=== PATIENT | female | born 1940 | race Caucasian/White ===

== ENCOUNTER → 2020-02-05 09:23 | Outpatient (CLI) | payer MEDICARE, OTHER, SELFPAY ==
[2020-02-06 12:02] LABS: COVID19 Sendout Not Detected (Not Detected)
== END ==
PROVIDERS: Visit Provider Physician Assistant
DX: Z11.59 Encounter for screening for other viral diseases (principal)
CPT/HCPCS: 87635

== ENCOUNTER → 2020-08-12 07:33 | Outpatient (CLI) | payer MEDICARE, OTHER, SELFPAY ==
--- NOTE | 2020-08-12 07:36 | DI.US.S_ITS ---
PROCEDURE: US ABDOMEN COMPLETE INDICATIONS: EPIGASTRIC PAIN, NAUSEA TECHNIQUE: Real-time scanning was performed of the abdominal and retroperitoneal organs, with image documentation. COMPARISON: None. FINDINGS: Liver: Liver is normal in size and homogeneous in echotexture. Small hepatic cysts x3 identified. 1 cyst measuring 1.9 cm has a thin septation without blood flow. Gallbladder: Nondilated. No stones or sludge. Small gallbladder polyps x2 measuring 0.3 cm. Normal gallbladder wall thickness. No pericholecystic fluid. Negative sonographic Corrigan's sign. Biliary ducts: Intrahepatic bile ducts are non-dilated. Extrahepatic bile duct caliber measures 5 mm. Normal is 6-7 mm or less in diameter, or 10 mm or less post-cholecystectomy. Pancreas: Visualized portions of the pancreas are sonographically normal. Spleen: Spleen is normal in size and homogeneous in echotexture. Kidneys: Kidneys are normal in size and echotexture. Right kidney measures 11.9 cm long; left kidney measures 11.0 cm long. No hydronephrosis or nephrolithiasis. No solid masses. Aorta: Visualized aorta is normal in caliber at less than 3 cm. Iliacs: Proximal common iliac arteries are normal in caliber at less than 2.5 cm. IVC: Intrahepatic inferior vena cava is patent. Miscellaneous: No free abdominal fluid. IMPRESSION: 1. No acute cholecystitis. No gallstones seen. Small gallbladder polyps not requiring further imaging surveillance. 2. Small hepatic cysts. 1 of the cysts has a thin septation and is minimally complex. 3. No hydronephrosis. Dictated by: Justin Suarez M.D. on 08/12/2020 at 10:12 Approved by: Justin Suarez M.D. on 08/12/2020 at 10:19
[2020-08-12 08:01] LABS: Add Manual Diff / Slide Review NO; Basophils Absolute Auto 100 /uL (0-100); Basophils Percent Auto 1.1 % (0-2); Eosinophils Absolute Auto 200 /uL (0-450); Eosinophils Percent Auto 3.7 % (2-4); Hematocrit 42.6 % (36-46); Hemoglobin 14.3 g/dL (12.0-16.0); Lymphocytes Absolute Auto 2200 /uL (1100-4500); Lymphocytes Percent Auto 34.6 % (25-40); Mean Corpuscular HGB Conc 33.5 % (30-36); Mean Corpuscular Hemoglobin 29.6 PG (26-34); Mean Corpuscular Volume 88.4 fL (80-100); Monocytes Absolute Auto 500 /uL (0-900); Monocytes Percent Auto 8.1 % (3-14); Neutrophils Absolute Auto 3300 /uL (1500-7000); Neutrophils Percent Auto 52.5 % (50-75); Platelet Count 208 X10^3/uL (150-400); Red Blood Cell Count 4.82 X10^6/uL (4.0-5.2); Red Cell Distribution Width 13.8 % (11.6-14.8); White Blood Cell Count 6.2 X10^3/uL (4.5-11.0)
[2020-08-12 08:10] LABS: Alanine Aminotransferase 21 IU/L (<35); Albumin 4.3 g/dL (3.5-5.0); Albumin Globulin Ratio 1.5 (1.0-2.8); Alkaline Phosphatase 85 U/L (38-126); Amylase 68 U/L (30-110); Aspartate Aminotransferase 28 IU/L (14-36); BUN Creatinine Ratio 20.5 (6-22); Bilirubin Total 0.4 mg/dL (0.2-1.3); Blood Urea Nitrogen 15 mg/dL (7-17); Calcium 9.4 mg/dL (8.4-10.2); Carbon Dioxide 27 mmol/L (22-32); Chloride 107 mmol/L (98-107); Cholesterol 246 mg/dL (140-199); Estimated Glomerular Filt Rate > 60.0 mL/min (>60); Globulin 2.8 g/dL (1.7-4.1); Glucose 104 mg/dL (80-110); HDL Cholesterol 52 mg/dL (40-60); HEMOLYSIS 16 (0-50); LDL Cholesterol Calculated 152 mg/dL (<100); Lipase 58 U/L (23-300); Sodium 141 mmol/L (137-145); Total Protein 7.1 g/dL (6.3-8.2); Triglycerides 211 mg/dL (35-150)
[2020-08-12 08:38] LABS: TSH w/ Reflex to FT4 2.64 uIU/mL (0.47-4.68)
== END ==
PROVIDERS: PCP Registered Nurse Diabetes Educator; Referring Provider Registered Nurse Diabetes Educator; Visit Provider Registered Nurse Diabetes Educator
DX: R10.13 Epigastric pain (principal); R11.0 Nausea; E78.5 Hyperlipidemia, unspecified; K76.89 Other specified diseases of liver; Z80.0 Family history of malignant neoplasm of digestive organs
CPT/HCPCS: 36415; 76700; 80053; 80061; 82150; 83690; 84443; 85025

== ENCOUNTER → 2020-08-31 16:04 | Outpatient (CLI) | payer MEDICARE, OTHER, SELFPAY ==
--- NOTE | 2020-08-31 16:06 | DI.MG.S_ITS ---
BILATERAL DIGITAL SCREENING MAMMOGRAM 3D/2D WITH CAD: 08/31/2020 CLINICAL: Routine screening. Comparison is made to exams dated: 01/12/2016 mammogram, 01/13/2011 mammogram, and 03/16/2009 mammogram - outside location. The tissue of both breasts is predominantly fatty. Current study was also evaluated with a Computer Aided Detection (CAD) system. No significant masses, calcifications, or other findings are seen in either breast. There has been no significant interval change. IMPRESSION: NEGATIVE There is no mammographic evidence of malignancy. A 1 year screening mammogram is recommended. This exam was interpreted at Station ID: [id number]. NOTE: For mammograms, a report in lay terms will be sent to the patient. Approximately 15% of breast malignancies will not be visualized mammographically. In the management of a palpable breast mass, a negative mammogram must not discourage biopsy of a clinically suspicious lesion. Electronically Signed By: Judd López M.D., jr/tomas:08/31/2020 16:38:12 letter sent: Normal Exam ACR BI-RADS Category 1: Negative [id number]
== END ==
PROVIDERS: PCP Registered Nurse Diabetes Educator; Referring Provider Registered Nurse Diabetes Educator; Visit Provider Registered Nurse Diabetes Educator
DX: Z12.31 Encounter for screening mammogram for malignant neoplasm of breast (principal)
CPT/HCPCS: 77063; 77067

== ENCOUNTER → 2020-11-12 08:09 | Outpatient (CLI) | payer MEDICARE, OTHER, SELFPAY ==
[2020-11-12 09:06] LABS: Cholesterol 259 mg/dL (140-199); HDL Cholesterol 50 mg/dL (40-60); LDL Cholesterol Calculated 161 mg/dL (<100); Triglycerides 238 mg/dL (35-150)
== END ==
PROVIDERS: PCP Registered Nurse Diabetes Educator; Referring Provider Registered Nurse Diabetes Educator; Visit Provider Registered Nurse Diabetes Educator
DX: E78.5 Hyperlipidemia, unspecified (principal); K76.89 Other specified diseases of liver
CPT/HCPCS: 36415; 80061

== ENCOUNTER → 2020-12-09 09:40 | Outpatient (CLI) | payer MEDICARE, OTHER, SELFPAY ==
--- NOTE | 2020-12-09 09:41 | DI.US.S_ITS ---
PROCEDURE: US ABDOMEN LIMITED INDICATIONS: FOLLOW-UP MINIMALLY COMPLICATED LIVER CYST TECHNIQUE: Real-time focused scanning was performed of the abdomen, with image documentation. COMPARISON: [facility], US, US ABDOMEN COMPLETE, 08/12/2020, 8:43. FINDINGS: 2 hepatic cyst redemonstrated similar prior examination with the largest measuring up to 2.8 cm and the smaller 2.5 cm. Mild wall irregularity again identified. 2 gallbladder polyps redemonstrated, largest measuring 4 mm. IMPRESSION: Hepatic cyst similar to prior examination and 2 gallbladder polyps with the largest measuring 4 mm. Dictated by: Steven Ruiz [facility] Interpreted: Kumar Pedro MD on 12/09/2020 at 10:54 Transcribed by: UNRULY on 12/09/2020 at 10:55 Approved by: Zackery Pedro M.D. on 12/13/2020 at 9:37
== END ==
PROVIDERS: PCP Registered Nurse Diabetes Educator; Referring Provider Registered Nurse Diabetes Educator; Visit Provider Registered Nurse Diabetes Educator
DX: K76.89 Other specified diseases of liver (principal); K82.4 Cholesterolosis of gallbladder
CPT/HCPCS: 76705

== ENCOUNTER → 2021-06-13 07:32 | Outpatient (CLI) | payer MEDICARE, OTHER, SELFPAY ==
[2021-06-13 09:03] LABS: Cholesterol 159 mg/dL (140-199); HDL Cholesterol 48 mg/dL (40-60); LDL Cholesterol Calculated 87 mg/dL (<100); Triglycerides 119 mg/dL (35-150)
== END ==
PROVIDERS: PCP Registered Nurse Diabetes Educator; Referring Provider Registered Nurse Diabetes Educator; Visit Provider Registered Nurse Diabetes Educator
DX: E78.5 Hyperlipidemia, unspecified (principal)
CPT/HCPCS: 36415; 80061

== ENCOUNTER → 2021-08-09 07:52 | Outpatient (CLI) | payer MEDICARE, OTHER, SELFPAY ==
[2021-08-09 08:59] LABS: BUN Creatinine Ratio 17.9 (6-22); Blood Urea Nitrogen 14 mg/dL (7-17); Calcium 9.3 mg/dL (8.4-10.2); Carbon Dioxide 28 mmol/L (22-32); Chloride 106 mmol/L (98-107); Estimated Glomerular Filt Rate > 60 mL/min (>60); Glucose 102 mg/dL (80-110); HEMOLYSIS < 15 (0-50); Potassium 4.3 mmol/L (3.4-5.1); Sodium 141 mmol/L (137-145)
== END ==
PROVIDERS: PCP Registered Nurse Diabetes Educator; Referring Provider Registered Nurse Diabetes Educator; Visit Provider Registered Nurse Diabetes Educator
DX: I10 Essential (primary) hypertension (principal)
CPT/HCPCS: 36415; 80048

== ENCOUNTER → 2021-12-09 09:48 | Outpatient (CLI) | payer MEDICARE, OTHER, SELFPAY ==
--- NOTE | 2021-12-09 09:50 | DI.US.S_ITS ---
PROCEDURE: US ABDOMEN LIMITED INDICATIONS: Assess minimally complex hepatic cyst TECHNIQUE: Real-time scanning was performed of the abdominal and retroperitoneal organs, with image documentation. COMPARISON: [facility], US, US ABDOMEN LIMITED, 12/09/2020, 9:52. FINDINGS: Liver: Liver is normal in size and homogeneous in echotexture. There are multiple cysts of the liver, the largest in the left lobe measuring 3.0 x 2.8 x 2.7 cm and the largest in the right lobe measuring 2.9 x 3.1 x 2.3 cm, not significantly changed compared to prior ultrasound. Gallbladder: No gallstones. 2 small polyps are seen measuring 5 mm and 4 mm. No gallbladder wall thickening or pericholecystic fluid. Biliary ducts: Intrahepatic bile ducts are non-dilated. Extrahepatic bile duct caliber measures 6.4 mm. Normal is 6-7 mm or less in diameter, or 10 mm or less post-cholecystectomy. Pancreas: Visualized portions of the pancreas are sonographically normal. Miscellaneous: No free abdominal fluid. IMPRESSION: 1. Simple hepatic cysts, unchanged compared to prior ultrasound on 12/09/2020. 2. No acute abnormality. Dictated by: Zackery Pedro M.D. on 12/09/2021 at 10:55 Approved by: Zackery Pedro M.D. on 12/09/2021 at 10:57
== END ==
PROVIDERS: PCP Registered Nurse Diabetes Educator; Referring Provider Registered Nurse Diabetes Educator; Visit Provider Registered Nurse Diabetes Educator
DX: K76.89 Other specified diseases of liver (principal)
CPT/HCPCS: 76705

== ENCOUNTER → 2022-06-20 07:19 | Outpatient (CLI) | payer MEDICARE, SELFPAY ==
[2022-06-20 08:30] LABS: Alanine Aminotransferase 28 IU/L (<35); Albumin 4.1 g/dL (3.5-5.0); Albumin Globulin Ratio 1.6 (1.0-2.8); Alkaline Phosphatase 86 U/L (38-126); Aspartate Aminotransferase 25 IU/L (14-36); BUN Creatinine Ratio 23.7 (6-22); Bilirubin Total 0.5 mg/dL (0.2-1.3); Blood Urea Nitrogen 18 mg/dL (7-17); Calcium 9.2 mg/dL (8.4-10.2); Carbon Dioxide 28 mmol/L (22-32); Chloride 103 mmol/L (98-107); Cholesterol 152 mg/dL (140-199); Estimated Glomerular Filt Rate > 60 mL/min (>60); Globulin 2.5 g/dL (1.7-4.1); Glucose 95 mg/dL (80-110); HDL Cholesterol 53 mg/dL (40-60); HEMOLYSIS < 15 (0-50); LDL Cholesterol Calculated 70 mg/dL (<100); Potassium 4.3 mmol/L (3.4-5.1); Sodium 137 mmol/L (137-145); Total Protein 6.6 g/dL (6.3-8.2); Triglycerides 145 mg/dL (35-150)
== END ==
PROVIDERS: PCP Registered Nurse Diabetes Educator; Referring Provider Registered Nurse Diabetes Educator; Visit Provider Registered Nurse Diabetes Educator
DX: I10 Essential (primary) hypertension (principal); E78.5 Hyperlipidemia, unspecified
CPT/HCPCS: 36415; 80053; 80061

== ENCOUNTER → 2022-07-07 09:45 | Outpatient (CLI) | payer MEDICARE, SELFPAY ==
--- NOTE | 2022-07-07 10:00 | DI.DEXA.S_ITS ---
Indication: postmenopausal; screening for osteoporosis; Referring Provider: TIGIST CORCORAN Study: Bone densitometry was performed. Exam Date: July 07, 2022 Accession number: [id number] Bone Density: Region BMD T-score Z-score Classification AP Spine(L1, L2, L3) 1.261 2.2 4.9 Normal Femoral Neck (Left) 0.911 0.6 2.9 Normal Total Hip (Left) 0.891 -0.4 1.7 Normal Total Forearm (Left) 0.526 -1.0 2.2 Normal 1/3 Forearm (Left) 0.621 -1.2 2.1 Osteopenia UD Forearm (Left) 0.452 0.2 2.5 Normal World Health Organization criteria for BMD impression classify patients as: Normal (T-score at or above -1.0), Osteopenia (T-score between -1.0 and -2.5), or Osteoporosis (T-score at or below -2.5). 10-year Fracture Risk: FRAX not reported because: All T-scores for Spine Total, Hip Total, Femoral Neck at or above -1.0 Impression: The patient has normal bone mass. Discussion: BONE DENSITY IS ABOVE THE MINIMUM DESIRABLE LEVEL AT ALL SKELETAL SITES TESTED. This patient?s bone mineral density is above the minimum desirable level (T-score -1.0 or better) at all sites measured. The patient should follow a healthful lifestyle (good nutrition with adequate calcium and vitamin D, and appropriate weight-bearing exercise). Follow-Up: Consider repeating this study in 5 years or sooner if there is some new clinical indication. Reported by: ARMANDO NOLAN M.D. on 07/07/2022 10:21:00 AM.
== END ==
PROVIDERS: PCP Registered Nurse Diabetes Educator; Referring Provider Registered Nurse Diabetes Educator; Visit Provider Registered Nurse Diabetes Educator
DX: Z78.0 Asymptomatic menopausal state (principal); M85.832 Other specified disorders of bone density and structure, left forearm
CPT/HCPCS: 77080; 77081

== ENCOUNTER 2022-10-20 09:22 | Day surgery (SDC) | payer MEDICARE, SELFPAY ==
--- NOTE | 2022-10-20 | PATH_ITS ---
[facility] Accession Number: [id number] No. of containers..01 Tissue . 01 Material submitted: . rectum - RECTAL POLYP . 01 Diagnosis: Rectum, Polypectomy: Tubular adenoma. MRV 10/26/2022 1620 Local . 01 Electronically signed: . Yue Shah MD, Pathologist NPI- [id number] . 01 Gross description: . RECTAL POLYP: Received in formalin is 1 fragment(s) of madrigal, soft tissue measuring 0.6 x 0.5 x 0.4 cm submitted entirely in 1 cassette(s) /MITCHELL 10/24/20222031 Local . 01 Pathologist provided ICD-10: K62.1, D12.8 . 01 CPT . 118020 Specimen Comment: A courtesy copy of this report has been sent to [facility] Performed at: 01 [facility] [address] [place] [address], [place], [place] [id number] MD Dwain Barnard MD Phone: [phone]
[2022-10-20 09:43] VITALS: BP 157/76; PULSE 94; RESP 18; TEMP 36.5; O2SAT 99; BMI 28.2
[2022-10-20] MEDS: LACTATED RINGERS 1,000 ML 84 ML IV ×2 (10:02→12:48)
--- NOTE | 2022-10-20 10:37 | PM.HP.1 ---
History of Present Illness History of Present Illness Date Patient Seen: 10/20/22 Chief complaint: Dx Colonoscopy Narrative: 82-year-old women presents today for a screening colonoscopy. She believes that her last colonoscopy was about 10 years ago in in another town in [place]. She has no family history of colon cancer. She does have occasional bleeding from below which she attributes to hemorrhoids. She says that it is mostly just streaks of blood on the toilet paper at especially after hard stool. As far she can recall she is not had polyps in the past but I do not have access to previous reports. Otherwise she has no questions or concerns today, and would like to proceed. [facility], [facility] Medical History Cervical spine disease Chronic low back pain Deep vein thrombosis (~2005) Dyslipidemia Family history of pancreatic cancer Hearing loss Hemorrhoid History of colon polyps Hypertension Lumbar stenosis Lumbosacral radiculopathy Skin cancer (~2014) Sleep apnea (~2009) Tinnitus Surgical History Anesthesia History of foot surgery (~2014) History of hip surgery (~06/2006) History of knee replacement (~02/04/08) History of knee replacement (~09/2008) History of laminectomy (~2013) Family History Mother Cancer Social History household members: spouse Smoking Status: Never smoker alcohol intake: current Meds Home Medications and Allergies Home Medications Medication Instructions Recorded Confirmed Type magnesium carbonate 1 tab PO DAILY 10/31/17 10/20/22 History multivitamin (Daily Multi-Vitamin 1 tab PO DAILY 10/31/17 10/20/22 History tablet) omega-3 fatty acids [Fish Oil 1 tab PO DAILY 10/31/17 10/20/22 History Concentrate] coQ10 (ubiquinol) 1 tab PO DAILY 08/10/20 10/20/22 History s-adenosylmethionine [Tong-E] 1 tab PO DAILY 08/10/20 10/20/22 History amlodipine 2.5 mg-benazepril 10 mg 1 cap PO DAILY #90 caps 06/20/22 10/20/22 Rx capsule atorvastatin 20 mg tablet 20 mg PO BEDTIME #90 tabs 06/20/22 10/20/22 Rx sodium,potassium,mag sulfates 17.5 See Rx Instructions PO .COMPLEX 09/13/22 10/20/22 Rx gram-3.13 gram-1.6 gram oral soln #354 mL (Suprep Bowel Prep Kit) Allergies Allergy/AdvReac Type Severity Reaction Status Date / Time No Known Drug Allergies Allergy Verified 10/20/22 09:56 Exam Vital Signs (past 8 hours): - 10/20/22 09:43 Temperature 97.7 F Pulse Rate 94 H Respiratory Rate 18 Blood Pressure 157/76 H Pulse Oximetry 99 Oxygen Delivery Method Room Air Oxygen Delivery Method Room Air Const General: cooperative, healthy appearing and comfortable Nutritional Appearance: average body habitus, well nourished and other (Appears healthy with good muscle mass for age) Orientation: alert, awake and oriented x3 HENMT Head: normal to inspection Eyes General: appearance normal, both eyes and all related structures Neck Neck: normal visual inspection Resp Effort & Inspection: normal respiratory effort and able to speak in complete sentences GI Palpation: soft and No tender Assessment & Plan Assessment and plan (1) Colon cancer screening: Status: Acute (2) Bleeding hemorrhoids: Status: Acute (3) Constipation: Status: Acute Assessment & Plan narrative: Presents today for screening colonoscopy I discussed the risks benefits and alternatives including but not limited to perforation of the colon and an incomplete exam she fully understands these risks and would like to proceed.
--- NOTE | 2022-10-20 13:08 | PM.OP.COLON ---
Operative Date/Time/Diagnoses Date of procedure: 10/20/22 Time of procedure: 13:09 Pre-op diagnosis: Colon cancer screening Procedure & Clinicians Study performed: Colonoscopy and biopsy Same procedure as scheduled: Yes Indications: Colon cancer screening, no family history Surgeon: Lucy Mattson Procedure Notes Procedure in detail: Patient was taken to the endoscopy suite and placed in a left lateral decubitus position. A time-out was performed. With the help of anesthesiologist conscious sedation was induced and monitored throughout the case. A digital rectal exam was performed and there were no masses or strictures. There was a right lateral external hemorrhoid. The colonoscope was introduced into the anal canal and advanced through to the cecum. A photograph of the appendiceal orifice was obtained. The bowel prep was good [place] bowel prep score of 2. The scope was then withdrawn for a total of 12 minutes and 1 approximately 1 cm in size rectal polyp was seen and removed with the korey snare. A photograph of the polyp was obtained and it was removed completely and sent for pathology. Additionally there were scattered diverticula centered in the sigmoid colon. The scope was then retroflexed and a photograph of the internal hemorrhoidal piles was obtained. Findings: divertiulosis, polyp(s) and other findings (External hemorrhoids) Specimen(s): other (Rectal polyp) Complications: none Post-procedure Plan for aftercare: Depending on the pathology of the polyp follow-up will be recommended. I do recommend a fiber supplement.
[2022-10-20 13:12] VITALS: BP 92/59; PULSE 78; RESP 18; TEMP 36.2; O2SAT 94
[2022-10-20 13:17] VITALS: BP 105/58; PULSE 85; RESP 14; O2SAT 95
[2022-10-20 13:22] VITALS: BP 122/69; PULSE 82; RESP 18; O2SAT 98
[2022-10-20 13:27] VITALS: BP 130/70; PULSE 78; RESP 18; TEMP 36.5; O2SAT 97
[2022-10-20 13:35] VITALS: BP 141/76; PULSE 77; RESP 16; TEMP 36.1; O2SAT 98
== END 2022-10-20 13:46 | disposition home or self-care (01) ==
PROVIDERS: PCP Registered Nurse Diabetes Educator; Referring Provider Surgery; Visit Provider Surgery
PROC: 0DJD8ZZ Inspection of Lower Intestinal Tract, Via Natural or Artificial Opening Endoscopic (ICD-10-PCS; CPT 45378; principal; 2022-10-20 10:30)
DX: D12.8 Benign neoplasm of rectum (principal); Z12.11 Encounter for screening for malignant neoplasm of colon; K64.4 Residual hemorrhoidal skin tags; K57.90 Diverticulosis of intestine, part unspecified, without perforation or abscess without bleeding; Z86.010 Personal history of colon polyps
CPT/HCPCS: 45380; J2704

== ENCOUNTER → 2022-11-10 13:58 | Outpatient (CLI) | payer MEDICARE, SELFPAY ==
--- NOTE | 2022-11-10 13:59 | DI.US.S_ITS ---
PROCEDURE: US ABDOMEN LIMITED INDICATIONS: GALL BLADDER POLYPS TECHNIQUE: Real-time scanning was performed of the abdominal and retroperitoneal organs, with image documentation. COMPARISON: [facility], , US ABDOMEN LIMITED, 12/09/2021, 10:03. FINDINGS: Liver: Liver is normal in size and homogeneous in echotexture. Multiple hepatic cysts are again noted, some which have mildly increased in size compared to prior. The largest measures up to 3.0 cm in the left hepatic lobe, stable. The largest in the right hepatic lobe measures up to 3.4 cm, previously up to 3.1 cm. Unchanged septated cyst within the left hepatic lobe measuring up to 2.1 cm. Gallbladder: Again seen 2 small gallbladder polyps measuring 5 mm and 4 mm. No gallstones. No gallbladder wall thickening or pericholecystic fluid. Gallbladder adenomyomatosis noted. Biliary ducts: Intrahepatic bile ducts are non-dilated. Extrahepatic bile duct caliber measures 3.6 mm. Normal is 6-7 mm or less in diameter, or 10 mm or less post-cholecystectomy. Pancreas: Visualized portions of the pancreas are sonographically normal. IMPRESSION: 1. Stable appearance of gallbladder polyps measuring 5 and 4 mm. No follow-up is necessary. 2. Multiple simple hepatic cysts are again noted, some of which have mildly increased in size compared to prior. Dictated by: Hong Aponte M.D. on 11/10/2022 at 15:20 Approved by: Hong Aponte M.D. on 11/10/2022 at 15:25
== END ==
PROVIDERS: PCP Registered Nurse Diabetes Educator; Referring Provider Registered Nurse Diabetes Educator; Visit Provider Registered Nurse Diabetes Educator
DX: K82.8 Other specified diseases of gallbladder (principal); K82.4 Cholesterolosis of gallbladder; K76.89 Other specified diseases of liver
CPT/HCPCS: 76705

== ENCOUNTER → 2023-01-17 12:06 | Outpatient (CLI) | payer MEDICARE, SELFPAY ==
--- NOTE | 2023-01-17 12:07 | DI.CT.S_ITS ---
PROCEDURE: CT HEAD/BRAIN WO CON INDICATIONS: blurry vision, h/o HTN, r/o TIA/stroke TECHNIQUE: Noncontrast 4.5 mm thick angled axial sections acquired from the foramen magnum to the vertex, with coronal and sagittal reformats. For radiation dose reduction, the following was used: automated exposure control, adjustment of mA and/or kV according to patient size. COMPARISON: None. FINDINGS: Image quality: Mild streak artifact can be seen through the skull base. CSF spaces: Basal cisterns are patent. 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 The ventricles are symmetric in size and shape. Brain: No intracranial bleeds or masses. There is cerebral volume loss for age, with resultant ventricular and sulcal prominence. There are periventricular and deep white matter chronic small vessel ischemic changes. There is intracranial internal carotid artery atherosclerosis. Skull and face: Calvarium and visualized facial bones appear intact, without suspicious lesions. Incidental note is made of hyperostosis frontalis. This is not considered to be pathologic in a woman of this age. Sinuses: Visualized sinuses and mastoids are clear. IMPRESSION: No acute intracranial abnormality is identified. 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 If there is strong clinical suspicion for an acute stroke, please consider a brain MRI for further evaluation, as it is more sensitive (assuming that there is no contraindication to MRI). Dictated by: Johnny Mcdaniel M.D. on 01/17/2023 at 13:18 Approved by: Johnny Mcdaniel M.D. on 01/17/2023 at 13:19
== END ==
PROVIDERS: PCP Registered Nurse Diabetes Educator; Referring Provider Family Medicine; Visit Provider Family Medicine
DX: H53.8 Other visual disturbances (principal); D18.1 Lymphangioma, any site
CPT/HCPCS: 70450

== ENCOUNTER → 2023-02-17 15:07 | Outpatient (CLI) | payer MEDICARE, SELFPAY ==
--- NOTE | 2023-02-17 15:10 | DI.MRI.S_ITS ---
PROCEDURE: MR STROKE Pre- and post-contrast brain MRI, non-contrast brain MR angiogram, pre- and postcontrast neck MR angiogram INDICATIONS: further eval d/t concern for possible TIA 01/15/2023 TECHNIQUE: Brain: Noncontrast axial T1 spin echo, axial T2 fast spin echo, sagittal and axial FLAIR, coronal T2 fast spin echo, axial gradient echo, axial diffusion and ADC through the brain. After the administration of contrast, axial 3D VIBE of the cranial vasculature and brain. Brain MRA: Non-contrast 3-D time of flight MR angiogram, with multiple imwemrk-ossoagjzz-rdjbvjpzwe (MIP) reformats performed. Neck MRA: Axial and sagittal TruFISP through the neck. Coronal dynamic MR angiogram during administration of contrast in the arterial and venous phases, with 3-dimenstional vtiohql-uypushspl-ndveslqfmh (MIP) reformats constructed from subtraction images. COMPARISON: [facility], CT, CT HEAD/BRAIN WO CON, 01/17/2023, 12:09. FINDINGS: Image quality: This examination is limited by involuntary motion artifact. BRAIN: CSF spaces: Ventricles are normal in size and shape. Basal cisterns are patent. Mild chronic subdural hygromas are seen, which are similar to the prior. Brain: No intracranial bleeds or mass effects. North-white matter interface is normal. Diffusion weighted images show no acute ischemic insults. Brainstem appears normal. Normal intravascular flow voids are present. No abnormal intracranial enhancement. Note is made of age-appropriate brain parenchymal volume loss and chronic small vessel ischemic changes. Skull and face: Calvarial marrow signal is normal. Orbits appear normal. Note is made of bilateral lens replacements. Incidental note is made of hyperostosis frontalis. This is not considered to be pathologic in a woman of this age. Sinuses: Sinuses and mastoids are clear. BRAIN MR ANGIOGRAM: Anterior circulation: Intracranial internal carotid arteries are normal in size and enhancement. The flow within the paired anterior cerebral arteries is normal and symmetric. The flow within the middle cerebral arteries is normal and symmetric. The anterior communicating artery is seen. No stenoses, occlusions, or aneurysms. Posterior circulation: Visualized portions of the vertebral arteries demonstrate normal caliber, and join to form a normal appearing basilar artery. There is a prominent right posterior communicating artery seen, with an accompanying diminutive right P1 segment. This is attributed to a type origin of the right posterior cerebral artery, which is considered to be a normal developmental variant of typically no clinical consequence. The flow within the posterior cerebral arteries is normal and symmetric. No aneurysms are seen. NECK MR ANGIOGRAM: Carotids: Great vessels demonstrate a conventional anatomy as they arise from the aortic arch. The origins of the common carotid arteries appear patent. The calibers and courses of both common carotid arteries are normal. The bifurcation regions appear normal bilaterally. The internal carotid arteries demonstrate normal course and caliber. Posterior circulation: The origins of the vertebral arteries appear patent. More superior portions of both vertebral arteries demonstrate normal course and caliber, and join to form a normal appearing basilar artery. Miscellaneous: Subclavian arteries appear patent. Pre-contrast images through the neck show no soft tissue abnormalities. IMPRESSION: BRAIN MRI: No findings of acute or subacute infarction can be seen. No prior territorial infarct is seen. Mild bilateral stable subdural hygromas are seen. No masses or abnormal enhancement can be seen. BRAIN MR ANGIOGRAM: No significant intracranial arterial abnormality is seen. Svakzk-qc-Krijsf developmental anomalies are incidentally noted. NECK MR ANGIOGRAM: Within the arteries of the neck, no hemodynamically significant stenosis can be seen. Dictated by: Johnny Mcdaniel M.D. on 02/19/2023 at 17:06 Approved by: Johnny Mcdaniel M.D. on 02/19/2023 at 17:09
== END ==
PROVIDERS: PCP Registered Nurse Diabetes Educator; Referring Provider Registered Nurse Diabetes Educator; Visit Provider Registered Nurse Diabetes Educator
DX: H53.9 Unspecified visual disturbance (principal); G96.00 Cerebrospinal fluid leak, unspecified
CPT/HCPCS: 70548; 70553

== ENCOUNTER → 2024-02-12 07:32 | Outpatient (CLI) | payer MEDICARE, SELFPAY ==
[2024-02-12 08:33] LABS: Alanine Aminotransferase 23 IU/L (<35); Albumin 3.9 g/dL (3.5-5.0); Albumin Globulin Ratio 1.4 (1.0-2.8); Alkaline Phosphatase 94 U/L (38-126); Aspartate Aminotransferase 23 IU/L (14-36); BUN Creatinine Ratio 26.8 (6-22); Bilirubin Total 0.5 mg/dL (0.2-1.3); Blood Urea Nitrogen 22 mg/dL (7-17); Calcium 9.5 mg/dL (8.4-10.2); Carbon Dioxide 28 mmol/L (22-32); Chloride 104 mmol/L (98-107); Cholesterol 155 mg/dL (140-199); Estimated Glomerular Filt Rate > 60 mL/min (>60); Globulin 2.7 g/dL (1.7-4.1); Glucose 100 mg/dL (80-110); HDL Cholesterol 48 mg/dL (40-60); HEMOLYSIS < 15 (0-50); LDL Cholesterol Calculated 72 mg/dL (<100); Potassium 4.5 mmol/L (3.4-5.1); Sodium 137 mmol/L (137-145); Total Protein 6.6 g/dL (6.3-8.2); Triglycerides 177 mg/dL (35-150)
== END ==
PROVIDERS: PCP Registered Nurse Diabetes Educator; Referring Provider Registered Nurse Diabetes Educator; Visit Provider Registered Nurse Diabetes Educator
DX: I10 Essential (primary) hypertension (principal); E78.5 Hyperlipidemia, unspecified
CPT/HCPCS: 36415; 80053; 80061

== ENCOUNTER → 2025-02-09 07:39 | Outpatient (CLI) | payer MEDICARE, SELFPAY ==
[2025-02-09 08:44] LABS: Alanine Aminotransferase 29 IU/L (<35); Albumin 4.3 g/dL (3.5-5.0); Albumin Globulin Ratio 1.6 (1.0-2.8); Alkaline Phosphatase 95 U/L (38-126); Blood Urea Nitrogen 19 mg/dL (7-17); Calcium 9.6 mg/dL (8.4-10.2); Carbon Dioxide 26 mmol/L (22-32); Chloride 106 mmol/L (98-107); Cholesterol 145 mg/dL (140-199); Estimated Glomerular Filt Rate > 60 mL/min (>60); Globulin 2.7 g/dL (1.7-4.1); Glucose 100 mg/dL (70-99); HDL Cholesterol 48 mg/dL (40-60); HEMOLYSIS < 15 (0-50); Potassium 4.3 mmol/L (3.4-5.1); Sodium 141 mmol/L (137-145); Total Protein 7.0 g/dL (6.3-8.2); Triglycerides 168 mg/dL (35-150)
== END ==
PROVIDERS: PCP Registered Nurse Diabetes Educator; Referring Provider Registered Nurse Diabetes Educator; Visit Provider Registered Nurse Diabetes Educator
DX: E78.5 Hyperlipidemia, unspecified (principal); R73.01 Impaired fasting glucose; I10 Essential (primary) hypertension
CPT/HCPCS: 36415; 80053; 80061

== ENCOUNTER → 2025-02-17 09:37 | Outpatient (CLI) | payer MEDICARE, SELFPAY ==
--- NOTE | 2025-02-17 09:39 | DI.RAD.S_ITS ---
PROCEDURE: XR LUMBAR SPINE 3V INDICATIONS: eval R side LBP, no injury TECHNIQUE: 3 views of the lumbar spine were acquired. COMPARISON: None. FINDINGS: Moderate degenerative changes of the lumbar spine with disc space narrowing, osteophytes, facet osseous hypertrophic changes most notably L4-5, L5-S1. No radiographic evidence of fracture or subluxation. Lumbar vertebral body heights within normal limits. Incidental note is made of pattern of constipation in the abdomen and pelvis. Right hip arthroplasty partially imaged. IMPRESSION: Degenerative changes as discussed above. If symptoms persist or worsen, or there is high clinical suspicion of lumbar abnormality, MRI could be performed. Dictated by: Mich Austin M.D. on 02/17/2025 at 12:03 Approved by: Mich Austin M.D. on 02/17/2025 at 12:05
== END ==
PROVIDERS: PCP Registered Nurse Diabetes Educator; Referring Provider Registered Nurse Diabetes Educator; Visit Provider Registered Nurse Diabetes Educator
DX: M47.816 Spondylosis without myelopathy or radiculopathy, lumbar region (principal); M47.817 Spondylosis without myelopathy or radiculopathy, lumbosacral region; M54.59 Other low back pain
CPT/HCPCS: 72100